=== PATIENT | female | born 1985 | race African-American/Black ===

== ENCOUNTER 2016-12-14 09:14 | Emergency (ER) | payer MEDICAID ==
[~2016-12-14] VITALS: Ht 162.6 cm; Wt 49.0 kg
[2016-12-14] MEDS ORDERED: NKM (09:22)
--- NOTE | 2016-12-14 09:38 | Emergency Room Report ---
History of Present Illness General Chief Complaint: Female Urogenital Problems Source: Patient, Caregiver Present Illness HPI Patient had a DNC procedure performed last month other 08 of November She feels that she has had continued spotting and bleeding since then She was seen by a brother stopper setter Who essentially recommended continued reevaluation However she continued to have spotting Patient reports there was never any full resolution of this She was concerning came to the emergency room Denies any chest pain or shortness of breath Denies any back or flank pain She has intermittent suprapubic cramping But denies any at this time Allergies: Coded Allergies: No Known Allergies (Unverified , 12/14/16) Patient History Past Medical History: see triage record Pertinent Family History: none Last Menstrual Period: 09/16/2017 Now: No : 3 Para: 1 Reviewed Nursing Documentation: PMH: Agreed, PSxH: Agreed Nursing Documentation-PMH Past Medical History: No Stated History Review of Systems All Other Systems: negative except mentioned in HPI Physical Exam Vital Signs Date Time Temp Pulse Resp B/P Pulse Ox O2 Delivery O2 Flow Rate FiO2 12/14/16 09:17 98.2 81 16 134/92 100 Room Air Sp02 EP Interpretation: reviewed, normal General Appearance: well appearing, no apparent distress Head: normocephalic, atraumatic Eyes: bilateral eye EOMI, bilateral eye PERRL ENT: hearing grossly normal, normal pharynx, TMs + canals normal, uvula midline Neck: full range of motion, supple, no meningismus, no bony tend Respiratory: lungs clear, normal breath sounds, no rhonchi, no respiratory distress, no retraction, no accessory muscle use Cardiovascular #1: normal peripheral pulses, regular rate, rhythm, no edema, no gallop, no JVD, no murmur Gastrointestinal: normal bowel sounds, non tender, soft, no mass, no organomegaly, non-distended, no guarding, no hernia, no pulsatile mass, no rebound Genitourinary: no CVA tenderness Musculoskeletal: normal inspection Neurologic: oriented x3, responsive, industrial property appraiser III-XII nml as tested, motor strength/ tone normal, sensory intact Psychiatric: mood/affect normal Skin: normal color, no rash, warm/dry, palpation normal Lymphatic: normal inspection, no adenopathy Medical Decision Making Diagnostic Impression: Primary Impression: Dysfunctional uterine bleeding ER Course Multiple differentials are considered Given the duration and continued bleeding ultrasound was obtained There are no signs of any retained products patient has had an ovarian cyst noted Likely not related to the patient's presentation at this time stable for continued close outpatient followup Labs Test 12/14/16 09:38 Urine Color Yellow Urine Appearance Clear Urine pH 7 (4.5-8.0) Urine Specific [place] 1.010 (1.005-1.035) Urine Protein Negative (NEGATIVE) Urine Glucose (UA) Negative (NEGATIVE) Urine Ketones Negative (NEGATIVE) Urine Occult Blood Negative (NEGATIVE) Urine Nitrite Negative (NEGATIVE) Urine Bilirubin Negative (NEGATIVE) Urine Urobilinogen Normal MG/DL (0.0-1.0) Urine Leukocyte Esterase 1+ (NEGATIVE) Urine RBC 0-2 /HPF (0 - 2) Urine WBC 2-4 /HPF (0 - 2) Urine Squamous Epithelial Cells Few /LPF (NONE/OCC) Urine Bacteria Few /HPF (NONE) Urine HCG, Qualitative Negative CT/MRI/US Diagnostic Results CT/MRI/US Diagnostic Results : Impression Pelvic ultrasound: No evidence of retained products, positive for ovarian cyst Last Vital Signs Date Time Temp Pulse Resp B/P Pulse Ox O2 Delivery O2 Flow Rate FiO2 12/14/16 09:17 98.2 81 16 134/92 100 Room Air Status: improved Disposition: HOME, SELF-CARE Condition: Improved Additional Instructions: Patient is provided with the discharge instructions notified to follow up with primary doctor in the next 2-3 days otherwise return to the er with any worsening symptoms. Please note that this report is being documented using [employer] technology. This can lead to erroneous entry secondary to incorrect interpretation by the dictating instrument. SANDY TOMLINSON D.O. Dec 14, 2016 09:38
[2016-12-14 09:40] VITALS: BP 123/84
[2016-12-14 09:58] LABS: APPEARANCE,URINE CLEAR; KETONES,URINE NEGATIVE (NEGATIVE); LEUKOCYTE ESTERASE ,URINE 1+ (NEGATIVE); NITRITE,URINE NEGATIVE (NEGATIVE); PH,URINE 7 (4.5-8.0); PROTEIN,URINE NEGATIVE (NEGATIVE); UROBILINOGEN,URINE NORMAL MG/DL (0.0-1.0)
[2016-12-14 10:09] LABS: BACTERIA,URINE FEW /HPF; RBC,URINE 0-2 /HPF (0 - 2); SQUAMOUS EPITHELIAL CELL,UR FEW /LPF (NONE/OCC)
[2016-12-14 11:23] VITALS: BP 125/91
--- NOTE | 2016-12-14 11:40 | Diagnostic Imaging Report ---
Indication:Recent 11/16/16. Vaginal bleeding. Technique: Grayscale and duplex Doppler imaging of the pelvis performed utilizing a transabdominal scan and endovaginal scan. Comparison: None Findings: Endometrium is normal in appearance without homogeneous thin central endometrial echo complex. Endometrial thickness is approximately 3 mm. Uterus measures 9.2 x 5.1 x 4.6 cm. The left ovary is not seen. Right ovary measures 3.6 x 2.5 x 1.9 CM. There is a right ovarian cyst noted measuring 2.7 cm in diameter. Small amount of free fluid noted. Impression: No evidence of retained products of conception. Nonidentification of the left ovary Right ovarian cyst 2.7 CM
== END 2016-12-14 11:24 | disposition home or self-care (01) ==
LOC: EMR 09:39
DX: N93.8 Other specified abnormal uterine and vaginal bleeding (principal)
CPT/HCPCS: 76830; 76856; 81003; 81025; 99284

== ENCOUNTER 2019-07-26 16:23 | Emergency (ER) | payer MEDICAID ==
[~2019-07-26] VITALS: Ht 162.6 cm; Wt 49.9 kg
[~2019-07-26 16:23] MED LIST: NKM
--- NOTE | 2019-07-26 16:43 | NUR ---
ED Nurse Note:pt. went for abdominal U/S
--- NOTE | 2019-07-26 17:26 | Diagnostic Imaging Report ---
Indication: Pelvic pain, positive test Technique: Transabdominal and transvaginal images of the pelvis. Doppler interrogation of the ovaries Comparison: 12/14/2016 Findings: Uterus measures 10 cm length by 7.3 cm AP. Within the endometrium, there is a gestational sac. This demonstrates a yolk sac. No pole or heart activity demonstrated. Mean sac diameter is 15 mm. This corresponds to an estimated gestational age of 4 weeks 6 days. No evidence of subchorionic hemorrhage. No myometrial abnormality. Right ovary measures 4.2 cm length. Left ovary measures 5.3 cm length. No adnexal mass demonstrated. There is trace free cul-de-sac fluid. Both ovaries demonstrate normal flow on Doppler interrogation. Impression: 4 weeks 6 day, by mean sac diameter measurement, intrauterine . No heart activity, so viability indeterminate. Most likely indicates very early with heart activity not visualized. However, this could also represent a nonviable . Recommend correlation with serial beta-hCGs, follow-up sonography as indicated. Trace free cul-de-sac fluid, presumably physiologic Normal ovaries with normal blood flow
--- NOTE | 2019-07-26 17:58 | NUR ---
ED Nurse Note:pt. had u/s done ,blood and urine sent to labs and pt. receiving IV fluids now
[2019-07-26 18:13] LABS: ANION GAP 8 mmol/L (5-15); BASOPHILS % (AUTO) 1.3 % (0.0-2.0); BLOOD UREA NITROGEN 8 mg/dL (7-18); CALCIUM 9.4 MG/DL (8.5-10.1); CARBON DIOXIDE 26 MMOL/L (21-32); CHLORIDE 105 MMOL/L (98-107); CREATININE 0.8 MG/DL (0.55-1.30); HEMATOCRIT 40.3 % (37.0-47.0); HEMOGLOBIN 13.7 G/DL (12.0-16.0); LYMPHOCYTES % (AUTO) 31.1 % (20.0-45.0); MEAN CORPUSCULAR VOLUME 81 FL (80-99); MONOCYTES % (AUTO) 6.6 % (1.0-10.0); PLATELET COUNT 247 K/UL (150-450); POTASSIUM 4.1 MMOL/L (3.5-5.1); RED BLOOD COUNT 4.99 M/UL (4.20-5.40); RED CELL DISTRIBUTION WIDTH 12.7 % (11.6-14.8); SODIUM 139 MMOL/L (136-145); WHITE BLOOD COUNT 9.2 K/UL (4.8-10.8)
[2019-07-26 18:17] LABS: ALANINE AMINOTRANSFERASE 13 U/L (12-78); ALBUMIN 4.2 G/DL (3.4-5.0); ALKALINE PHOSPHATASE 47 U/L (46-116); ASPARTATE AMINO TRANSFERASE 13 U/L (15-37); BILIRUBIN,TOTAL 0.6 MG/DL (0.2-1.0)
[2019-07-26 18:18] LABS: APPEARANCE,URINE CLEAR; BILIRUBIN, URINE NEGATIVE (NEGATIVE); COLOR,URINE YELLOW; GLUCOSE, URINE (UA) NEGATIVE (NEGATIVE); KETONES,URINE NEGATIVE (NEGATIVE); LEUKOCYTE ESTERASE ,URINE 1+ (NEGATIVE); NITRITE,URINE NEGATIVE (NEGATIVE); PH,URINE 7 (4.5-8.0); PROTEIN,URINE NEGATIVE (NEGATIVE); UROBILINOGEN,URINE NORMAL MG/DL (0.0-1.0)
--- NOTE | 2019-07-26 19:07 | NUR ---
HAND-OFF: Report given to Nakul Hwang
--- NOTE | 2019-07-26 19:07 | Emergency Room Report ---
History of Present Illness General Chief Complaint: Complications Source: Patient Present Illness HPI 33-year-old female who is G5, , who is 5 weeks , here complaining of 1 day of abdominal cramping rating a 5 out of 10 without radiation. Denies any spotting or bleeding. Denies syncope, chest pain, shortness of breath, fever and chills, palpitation, urinary frequency, blood in his urine. Has not taken medication for pain. Denies any strenuous physical activity. 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 Patient currently has an TRANSPLANTER ORCHID however has not yet seen her TRANSPLANTER ORCHID. Patient sitting comfortably with stable vital signs. Patient also reports that she is Rh- and is aware of needing to start Rhogram by her TRANSPLANTER [facility]CH[facility] Allergies: Coded Allergies: No Known Allergies (Unverified , 12/14/16) Patient History Past Medical History: see triage record Past Surgical History: unable to obtain Pertinent Family History: none Now: No Immunizations: UTD Reviewed Nursing Documentation: PMH: Agreed; PSxH: Agreed Nursing Documentation-PMH Past Medical History: No Stated History Review of Systems All Other Systems: negative except mentioned in HPI Physical Exam Vital Signs Date Time Temp Pulse Resp B/P (MAP) Pulse Ox O2 Delivery O2 Flow Rate FiO2 07/26/19 16:31 98.2 99 18 127/82 (97) 98 Room Air Sp02 EP Interpretation: reviewed, normal General Appearance: no apparent distress, alert, GCS 15, non-toxic Head: normocephalic, atraumatic Eyes: bilateral eye normal inspection, bilateral eye PERRL ENT: hearing grossly normal, normal pharynx, no angioedema, normal voice Neck: full range of motion, supple/symm/no masses Respiratory: chest non-tender, lungs clear, normal breath sounds, no rhonchi, no retraction, no wheezing, speaking full sentences Cardiovascular #1: regular rate, rhythm, no edema, no murmur, normal capillary refill Gastrointestinal: normal bowel sounds, non tender, soft, no mass, no organomegaly, no peritonitis, non-distended, no guarding, no rebound Rectal: deferred Genitourinary: normal inspection, no CVA tenderness Musculoskeletal: back normal, gait/station normal, normal range of motion, non- tender, no calf tenderness Neurologic: alert, oriented x3, responsive, motor strength/tone normal, sensory intact, speech normal Psychiatric: judgement/insight normal, memory normal, mood/affect normal, no suicidal/homicidal ideation Skin: no rash Lymphatic: no adenopathy Medical Decision Making PA Attestation All my diagnosis and treatment plans were reviewed ad discussed with my supervising physician Dr. Garcia Diagnostic Impression: Primary Impression: Abdominal pain during ER Course 33-year-old female who is G5, , who is 5 weeks , here complaining of 1 day of abdominal cramping rating a 5 out of 10 without radiation. Denies any spotting or bleeding. Denies syncope, chest pain, shortness of breath, fever and chills, palpitation, urinary frequency, blood in his urine. Has not taken medication for pain. Denies any strenuous physical activity. 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 Patient currently has an TRANSPLANTER ORCHID however has not yet seen her TRANSPLANTER [facility]CH[facility]. Patient sitting comfortably with stable vital signs. Patient also reports that she is Rh- and is aware of needing to start Rhogram by her [facility]ANSPL[facility]CH[facility] Ddx considered but are not limited to: UTI, abdominal pain during , miscarriage, spontaneous , , ectopic Vital signs: are WNL, pt. is afebrile H&PE are most consistent with: Abdominal pain during ORDERS: CBC, CP, UA, type and screen, OB ultrasound, Tylenol, vitamins ED INTERVENTIONS: NS boluses patient reports that she might be dehydrated. DISCHARGE: At this time pt. is stable for d/c to home. Will provide printed patient care instructions, and any necessary prescriptions. Care plan and follow up instructions have been discussed with the patient prior to discharge. Patient follow-up with TRANSPLANTER ORCHID 2648 hours, beta-hCG is within normal limits, and abdominal ultrasound nonviable heart rate, as patient is only 5 weeks , heart rate was dissected. However I advised the patient to return to the emergency room immediately if syncope, fever or chills, worsening pain. CT/MRI/US Diagnostic Results CT/MRI/US Diagnostic Results : Imaging Test Ordered: OB US Impression wnl, 5wks, no subchorionic hemorrhage No heart rate detected, Last Vital Signs Date Time Temp Pulse Resp B/P (MAP) Pulse Ox O2 Delivery O2 Flow Rate FiO2 07/26/19 16:31 98.2 99 18 127/82 (97) 98 Room Air Disposition: HOME, SELF-CARE Condition: Stable Scripts Acetaminophen* (TYLENOL EXTRA STRENGTH*) 500 Mg Tablet 500 MG ORAL Q8H PRN for Prn Headache/Temp > 101, #30 TAB 0 Refills Prov: Sin Heller 07/26/19 No.137/Iron/Folic Acd ( Vitamin Tablet) 1 Each Tablet 1 EACH PO DAILY, #30 TAB Prov: Sin Heller 07/26/19 Referrals: [facility],REFERRING (PCP) Patient Instructions: Abdominal Pain During , [id number] Additional Instructions: Take your vitamins follow-up with your TRANSPLANTER [facility]CHID in 24 to 48 hours if worsening symptoms such as clotting or swelling return to the emergency room. Sin Heller Jul 26, 2019 19:07
[2019-07-26] MEDS ORDERED: PRENATAL VITAM1 EA10 PO (19:09)
[2019-07-26] MEDS ORDERED: TYLENOL EXTRA500 MG ORAL (19:09)
--- NOTE | 2019-07-26 19:15 | NUR ---
ER DISCHARGE NOTE: Patient is cleared to be discharged per ERMD, pt is aox4, on room air, with stable vital signs. pt was given dc and prescription instructions, pt was able to verbalize understanding, pt id band and iv site removed without complications. pt is able to ambulate with steady gait. pt took all belongings.
[2019-07-26 19:17] VITALS: BP 127/82
== END 2019-07-26 19:15 | disposition home or self-care (01) ==
LOC: EMR 18:15
DX: O26.891 Other specified pregnancy related conditions, first trimester (principal); R10.9 Unspecified abdominal pain
CPT/HCPCS: 36415; 76801; 76830; 80053; 81001; 84702; 85025; 86850; 86900; 86901; 96360; Z7502; 99284

== ENCOUNTER 2019-10-02 14:02 | Emergency (ER) | payer MEDICAID ==
[~2019-10-02] VITALS: Ht 162.6 cm; Wt 49.9 kg
[~2019-10-02 14:02] MED LIST changes: +PRENATAL VITAM1 EA10 PO; +TYLENOL EXTRA500 MG ORAL
--- NOTE | 2019-10-02 14:43 | NUR ---
ED Nurse Note:blood sent to labs, abd U/S in the room
[2019-10-02 14:59] LABS: BASOPHILS % (AUTO) 0.7 % (0.0-2.0); EOSINOPHILS % (AUTO) 0.1 % (0.0-3.0); HEMATOCRIT 33.8 % (37.0-47.0); HEMOGLOBIN 12.2 G/DL (12.0-16.0); LYMPHOCYTES % (AUTO) 11.8 % (20.0-45.0); MEAN CORPUSCULAR VOLUME 80 FL (80-99); MONOCYTES % (AUTO) 4.7 % (1.0-10.0); NEUTROPHILS % (AUTO) 82.7 % (45.0-75.0); PLATELET COUNT 239 K/UL (150-450); RED CELL DISTRIBUTION WIDTH 12.7 % (11.6-14.8); WHITE BLOOD COUNT 15.3 K/UL (4.8-10.8)
[2019-10-02 15:16] LABS: ANION GAP 12 mmol/L (5-15); BLOOD UREA NITROGEN 5 mg/dL (7-18); CARBON DIOXIDE 22 MMOL/L (21-32); CHLORIDE 104 MMOL/L (98-107); CREATININE 0.6 MG/DL (0.55-1.30); POTASSIUM 3.3 MMOL/L (3.5-5.1); SODIUM 138 MMOL/L (136-145)
--- NOTE | 2019-10-02 15:18 | Emergency Room Report ---
History of Present Illness General Chief Complaint: Complications Source: Patient (Eulalia Burkett) Present Illness HPI 33 YO Female previous who is RH negative presents to the ED c/o light abdominal cramping 5/10 in severity with spotting x 3 hours this morning that has resolved now. Pt. states she is approx. 15 weeks along in her . Pt. reports filled up a whole panty liner with bright red blood. She denies fevers or chills. Denies dysuria, or hematuria. Pt. Denies abdominal trauma. She denies N/V, constipation or diarrhea. Pt. reports she was just at [facility] last week and had a normal visit with her next appointment on the 22 of October. No other aggravating or relieving factors. 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 Denies any other significant or pertinent PmHx. (Eulalia Burkett) Allergies: Coded Allergies: No Known Allergies (Unverified , 12/14/16) Patient History Past Medical History: see triage record Past Surgical History: none Now: Yes - 15 WEEKS : 6 Reviewed Nursing Documentation: PMH: Agreed; PSxH: Agreed (Eulalia Burkett) Nursing Documentation-PMH Past Medical History: No History, Except For (Eulalia Burkett) Review of Systems All Other Systems: negative except mentioned in HPI (Eulalia Burkett) Physical Exam Vital Signs Date Time Temp Pulse Resp B/P (MAP) Pulse Ox O2 Delivery O2 Flow Rate FiO2 10/02/19 14:08 98.8 110 20 119/81 (94) 98 Room Air Sp02 EP Interpretation: reviewed, normal General Appearance: no apparent distress, alert, GCS 15, non-toxic Head: normocephalic, atraumatic Eyes: bilateral eye normal inspection, bilateral eye PERRL ENT: hearing grossly normal, normal voice Neck: full range of motion Respiratory: lungs clear, normal breath sounds, speaking full sentences Cardiovascular #1: regular rate, rhythm, tachycardia Gastrointestinal: normal bowel sounds, non tender, soft, non-distended, no guarding Genitourinary: normal inspection, no CVA tenderness, os closed, other - no evidence of blood. Musculoskeletal: normal range of motion, gait/station normal, non-tender Neurologic: alert, motor strength/tone normal, oriented x3, sensory intact, responsive, speech normal Psychiatric: judgement/insight normal Skin: no rash, normal color, normal inspection Lymphatic: no adenopathy (Eulalia Burkett) Medical Decision Making PA Attestation Dr. Haines Is my supervising Physician whom patient management has been discussed with. (Eulalia Burkett) Diagnostic Impression: Primary Impression: Vaginal bleeding during Additional Impression: UTI (urinary tract infection) Qualified Codes: N30.01 - Acute cystitis with hematuria ER Course 33 YO Female previous who is RH negative presents to the ED c/o light abdominal cramping 5/10 in severity with spotting x 3 hours this morning that has resolved now. Pt. states she is approx. 15 weeks along in her . Pt. reports filled up a whole panty liner with bright red blood. She denies fevers or chills. Denies dysuria, or hematuria. Pt. Denies abdominal trauma. She denies N/V, constipation or diarrhea. Pt. reports she was just at [facility] last week and had a normal visit with her next appointment on the 22 of October. No other aggravating or relieving factors. 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 Denies any other significant or pertinent PmHx. Ddx considered but are not limited to: Fibroid, ectopic , Fibroid, Spontaneous , placenta previa, placenta abruptio just to name a few. Vital signs: pt. had tachycardia in triage however on PE HR palpated to be 96. pt. is afebrile H&PE are most consistent with: Spotting during early of an RH negative person ORDERS: -CBC: WNL -CMP:WNL - UA: elevation of inflammatory markers with presence of few bacteria, c/w UTI -serum Hcg Quant: [id number] - Blood/RH type and screen- see attached labs RH Negative -- O Negative -Pelvic US complete- normal intrauterine estimated at 16 weeks gestation with a FHR of 151. ED INTERVENTIONS: -Rhogam IM DISCHARGE: At this time pt. is stable for d/c to home. Will provide printed patient care instructions, and any necessary prescriptions. Care plan and follow up instructions have been discussed with the patient prior to discharge. Labs Test 10/02/19 14:40 10/02/19 16:10 White Blood Count 15.3 K/UL (4.8-10.8) Red Blood Count 4.20 M/UL (4.20-5.40) Hemoglobin 12.2 G/DL (12.0-16.0) Hematocrit 33.8 % (37.0-47.0) Mean Corpuscular Volume 80 FL (80-99) Mean Corpuscular Hemoglobin 29.0 PG (27.0-31.0) Mean Corpuscular Hemoglobin Concent 36.1 G/DL (32.0-36.0) Red Cell Distribution Width 12.7 % (11.6-14.8) Platelet Count 239 K/UL (150-450) Mean Platelet Volume 6.2 FL (6.5-10.1) Neutrophils (%) (Auto) 82.7 % (45.0-75.0) Lymphocytes (%) (Auto) 11.8 % (20.0-45.0) Monocytes (%) (Auto) 4.7 % (1.0-10.0) Eosinophils (%) (Auto) 0.1 % (0.0-3.0) Basophils (%) (Auto) 0.7 % (0.0-2.0) Sodium Level 138 MMOL/L (136-145) Potassium Level 3.3 MMOL/L (3.5-5.1) Chloride Level 104 MMOL/L (98-107) Carbon Dioxide Level 22 MMOL/L (21-32) Anion Gap 12 mmol/L (5-15) Blood Urea Nitrogen 5 mg/dL (7-18) Creatinine 0.6 MG/DL (0.55-1.30) Estimat Glomerular Filtration Rate > 60 mL/min (>60) Glucose Level 93 MG/DL (74-106) Calcium Level 9.0 MG/DL (8.5-10.1) Total Bilirubin 0.4 MG/DL (0.2-1.0) Aspartate Amino Transf (AST/SGOT) 31 U/L (15-37) Alanine Aminotransferase (ALT/SGPT) 23 U/L (12-78) Alkaline Phosphatase 51 U/L (46-116) Total Protein 7.2 G/DL (6.4-8.2) Albumin 3.6 G/DL (3.4-5.0) Globulin 3.6 g/dL Albumin/Globulin Ratio 1.0 (1.0-2.7) Human Chorionic Gonadotropin, Quant 33841 mIU/mL (1-6) Urine Color Yellow Urine Appearance Slightly cloudy Urine pH 7 (4.5-8.0) Urine Specific [place] 1.010 (1.005-1.035) Urine Protein 1+ (NEGATIVE) Urine Glucose (UA) Negative (NEGATIVE) Urine Ketones 3+ (NEGATIVE) Urine Blood 3+ (NEGATIVE) Urine Nitrite Negative (NEGATIVE) Urine Bilirubin Negative (NEGATIVE) Urine Urobilinogen Normal MG/DL (0.0-1.0) Urine Leukocyte Esterase 3+ (NEGATIVE) Urine RBC 2-4 /HPF (0 - 2) Urine WBC 30-40 /HPF (0 - 2) Urine Squamous Epithelial Cells Few /LPF (NONE/OCC) Urine Amorphous Sediment Few /LPF (NONE) Urine Bacteria Few /HPF (NONE) (Eulalia Burkett) CT/MRI/US Diagnostic Results CT/MRI/US Diagnostic Results : Imaging Test Ordered: OB US Impression IUP approximately 16 weeks and 5 days gestation with heart rate of 151. (Eulalia Burkett) Last Vital Signs Date Time Temp Pulse Resp B/P (MAP) Pulse Ox O2 Delivery O2 Flow Rate FiO2 10/02/19 14:08 98.8 110 20 119/81 (94) 98 Room Air Status: improved (Eulalia Burkett) Disposition: HOME, SELF-CARE Condition: Stable Scripts Cephalexin* (KEFLEX*) 500 Mg Capsule 500 MG ORAL EVERY 12 HOURS for 7 Days, #14 CAP 0 Refills Prov: Eulalia Burkett 10/02/19 Patient Instructions: Urinary Tract Infection, [id number] Additional Instructions: Take medications as directed. Follow up with a OBGYN within 3 days, even if your symptoms have resolved. Return sooner to ED if new symptoms occur, or current symptoms become worse. - Please note that this Emergency Department Report was dictated using [employer] Solutions[employer]ulting networking engineer technology software, occasionally this can lead to erroneous entry secondary to interpretation by the dictation equipment. Eulalia Burkett Oct 02, 2019 15:18 Michael Haines MD Oct 03, 2019 05:59
[2019-10-02 15:20] LABS: ALANINE AMINOTRANSFERASE 23 U/L (12-78); ALBUMIN 3.6 G/DL (3.4-5.0); ALKALINE PHOSPHATASE 51 U/L (46-116); ASPARTATE AMINO TRANSFERASE 31 U/L (15-37); BILIRUBIN,TOTAL 0.4 MG/DL (0.2-1.0)
[2019-10-02] MEDS ORDERED: RHO (D) Immune Globulin 1500 Units IM ONE (15:30)
[2019-10-02 16:29] LABS: APPEARANCE,URINE SLIGHTLY CLOUDY; BILIRUBIN, URINE NEGATIVE (NEGATIVE); GLUCOSE, URINE (UA) NEGATIVE (NEGATIVE); KETONES,URINE 3+ (NEGATIVE); LEUKOCYTE ESTERASE ,URINE 3+ (NEGATIVE); NITRITE,URINE NEGATIVE (NEGATIVE); PH,URINE 7 (4.5-8.0); PROTEIN,URINE 1+ (NEGATIVE); UROBILINOGEN,URINE NORMAL MG/DL (0.0-1.0)
[2019-10-02 16:30] LABS: COLOR,URINE YELLOW
--- NOTE | 2019-10-02 16:48 | Diagnostic Imaging Report ---
EXAM: US First Trimester, Transabdominal US , Transvaginal CLINICAL HISTORY: PAIN TECHNIQUE: Real-time transabdominal and transvaginal obstetrical ultrasound of the maternal pelvis and a first trimester with image documentation. Transvaginal imaging was used for better evaluation of the fetus and adnexa. COMPARISON: No relevant prior studies available. FINDINGS: Limitations: Limited anatomic survey. Gestation: IUP measuring 16 weeks 0 days by ultrasound measurements and 14 weeks 6 days by dates. heart rate of 151 beats/minute. Placenta/amniotic fluid: Anterior placenta. No retroplacental hemorrhage. Uterus/cervix: Cervix measures 5 cm. Ovaries: The ovaries are not visualized. IMPRESSION: IUP measuring 16 weeks 0 days by ultrasound measurements and 14 weeks 6 days by dates.
[2019-10-02] MEDS ORDERED: CEPHALEXIN500 MG ORAL (17:07)
[2019-10-02 17:11] VITALS: BP 119/81
== END 2019-10-02 17:25 | disposition home or self-care (01) ==
LOC: EMR 14:20
DX: O46.92 Antepartum hemorrhage, unspecified, second trimester (principal); O23.12 Infections of bladder in pregnancy, second trimester; N30.01 Acute cystitis with hematuria; R00.0 Tachycardia, unspecified; Z3A.16 16 weeks gestation of pregnancy
CPT/HCPCS: 36415; 76805; 80053; 81003; 84702; 85025; 86900; 86901; 87086; 96372; J2790; J2791; Z7502; 99284